=== PATIENT | male | born 1955 ===

== ENCOUNTER 2017-02-23 13:18 | Observation (INO) | payer MEDICAID, OTHER ==
--- NOTE | 2017-02-23 13:35 | C.PDOC ---
History Of Present Illness HISTORY OBTAINED VIA [facility] #[id number] 61 Y/O MALE BROUGHT TO ED BY EMS FROM DR. GONZALEZ'S OFFICE (PMD) WITH C/O CHEST PAIN WITH ASSOC DIFFICULTY BREATHING SINCE THIS MORNING. PT REPORTS HISTORY OF CARDIAC ISSUES (CT IN 2016), TAKING ASPIRIN 81mg. NOTES HE DOES NOT TAKE WATER PILLS. PT STATES CURRENT CP SIMILAR INTENSITY THIS MORNING AT ONSET OF SYMPTOMS, DESCRIBED TIGHTNESS. NOTES +SMOKER "SOMETIMES". PER EMS, PT HAD SYNCOPAL EPISODE DURING TRANSPORT TO ER, LASTING 20-30 SECONDS, WITH HR >140, ELEVATED BP. PT GIVEN NITRO SPRAY x1 AND ASA 324mg EN ROUTE. PT AWAKE, ALERT ON ARRIVAL, SPEAKING IN COMPLETE SENTENCES. . 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 denies: Nausea, Dyspnea, Diaphoresis Nitro Therapy Administered: 1, Per EMS Recent travel outside of the [place]: No Past Medical History Reviewed: Historical Data, Nursing Documentation, Vital Signs Vital Signs: Last Vital Signs Temp 99.0 F 02/23/17 13:26 Pulse 94 H 02/23/17 13:26 Resp 19 02/23/17 13:26 BP 154/100 H 02/23/17 13:26 Pulse Ox 95 02/23/17 14:18 - Medical History PMH: Hypercholesterolemia, Parkinson's Disease Family History: States: Unknown Family Hx - Social History Hx Alcohol Use: No Hx Substance Use: No - Immunization History Hx Influenza Vaccination: No Hx Pneumococcal Vaccination: No Review Of Systems Except As Marked, All Systems Reviewed And Found Negative. Constitutional: Negative for: Fever, Chills Cardiovascular: Positive for: Chest Pain. Negative for: Palpitations Respiratory: Positive for: Shortness of Breath. Negative for: Cough, Wheezing Gastrointestinal: Negative for: Nausea, Vomiting, Abdominal Pain Skin: Negative for: Rash Neurological: Negative for: Dizziness Physical Exam - Physical Exam Appears: Non-toxic, Other (AAO, SPEAKING IN COMPLETE SENTENCES, PARKINSONIAN TREMORS UPPER EXTREMITIES) Skin: Warm, Dry Head: Atraumatic, Normacephalic Eye(s): right: Other (STYE, R UPPER EYELID) Oral Mucosa: Moist Chest: Symmetrical Cardiovascular: Rhythm Regular Respiratory: No Accessory Muscle Use, Rales (BIBASILAR), No Wheezing Gastrointestinal/Abdominal: Soft, No Tenderness Back: Normal Inspection Extremity: Normal ROM Neurological/Psych: Oriented x3, Normal Speech, Normal Cognition ED Course And Treatment - Laboratory Results Result Diagrams: 02/23/17 14:07 02/23/17 14:07 ECG: Interpreted By Me ECG Rhythm: Sinus Rhythm ECG Interpretation: Normal Rate From EC O2 Sat by Pulse Oximetry: 95 (RA) Pulse Ox Interpretation: Normal Progress - Re-Evaluation Re-evaluation Note: 02/23/17 14:58 exam improved d/w dr gonzalez will admit - Data Reviewed Data Reviewed: Lab, Diagnostic imaging, EKG, Old records - Continuity of Care Discussed patient case with:: Patient, On-call PMD-pt unassigned Disposition Counseled Patient/Family Regarding: Diagnosis - Disposition Disposition: HOSPITALIZED Disposition Time: 15:09 Condition: STABLE Forms: [employer] ([place]) - POA Present On Arrival: None - Clinical Impression Clinical Impression: Chest pain - Scribe Statement The provider has reviewed the documentation as recorded by the Scribe SM All medical record entries made by the Scribe were at my direction and personally dictated by me. I have reviewed the chart and agree that the record accurately reflects my personal performance of the history, physical exam, medical decision making, and the department course for this patient. I have also personally directed, reviewed, and agree with the discharge instructions and disposition. Decision To Admit - Pt Status Changed To: Hospital Disposition Of: Observation - . Bed Request Type: Telemetry Admitting Physician: Connor Gonzalez Patient Diagnosis: Chest pain
[2017-02-23 14:14] LABS: BASO # 0.1 K/uL (0.0-0.2); BASO % 0.7 % (0.0-2.0); EOS % 0.1 % (0.0-4.0); HEMATOCRIT 45.5 % (35.0-51.0); LYMPH # 2.8 K/uL (1.0-4.3); LYMPH % 25.7 % (20.0-40.0); MEAN CELL VOLUME 90.8 fL (80.0-94.0); MEAN CORPUSCULAR HGB CONC 34.1 g/dL (33.0-37.0); MEAN PLATELET VOLUME 8.1 fL (7.2-11.7); MONO # 0.7 K/uL (0.0-0.8); MONO % 6.4 % (0.0-10.0); RED CELL DISTRIBUTION WIDTH 14.6 % (11.5-14.5)
[2017-02-23 14:26] LABS: CHLORIDE 103 mmol/L (98-107)
[2017-02-23 14:27] LABS: POTASSIUM 3.9 mmol/L (3.6-5.2); SODIUM 137 mmol/L (132-148)
[2017-02-23 14:29] LABS: ALB/GLOB RATIO 1.1 (1.0-2.1); ALKALINE PHOSPHATASE 72 U/L (38-126); AST/SGOT 26 U/L (17-59); BILIRUBIN,TOTAL 0.4 mg/dL (0.2-1.3); BLOOD UREA NITROGEN 12 mg/dL (9-20); CARBON DIOXIDE 25 mmol/L (22-30); GFR AFRICAN-AMERICAN > 60; TOTAL PROTEIN 8.4 g/dL (6.3-8.3)
[2017-02-23 14:30] LABS: ALT/SGPT 49 U/L (21-72); CALCIUM 9.2 mg/dl (8.6-10.4); GLUCOSE,RANDOM 99 mg/dL (75-110)
--- NOTE | 2017-02-23 14:56 | RAD ---
PROCEDURE: CHEST RADIOGRAPH, 1 VIEW HISTORY: chest pain COMPARISON: Portable chest 03/30/2016. FINDINGS: LUNGS: Clear. PLEURA: No pneumothorax or pleural fluid seen. CARDIOVASCULAR: Normal. OSSEOUS STRUCTURES: No significant abnormalities. VISUALIZED UPPER ABDOMEN: Normal. OTHER FINDINGS: None. IMPRESSION: No definite acute cardiopulmonary disease is appreciated in the interval.
--- NOTE | 2017-02-23 22:44 | CP.PCM.HP ---
History of Present Illness - History of Present Illness History of Present Illness: 61 Y/O MALE BROUGHT TO ED BY EMS FROM my OFFICE (PMD) WITH C/O CHEST PAIN WITH ASSOC DIFFICULTY BREATHING SINCE THIS MORNING. PT REPORTS HISTORY OF CARDIAC ISSUES ([place] IN 2016), TAKING ASPIRIN 81mg. NOTES HE DOES NOT TAKE WATER PILLS. PT STATES CURRENT CP SIMILAR INTENSITY THIS MORNING AT ONSET OF SYMPTOMS, DESCRIBED TIGHTNESS. NOTES +SMOKER "SOMETIMES". PER EMS, PT HAD SYNCOPAL EPISODE DURING TRANSPORT TO ER, LASTING 20-30 SECONDS, WITH HR >140, ELEVATED BP. PT GIVEN NITRO SPRAY x1 AND ASA 324mg EN ROUTE. PT AWAKE, ALERT ON ARRIVAL, SPEAKING IN COMPLETE SENTENCES. . Present on Admission - Present on Admission Any Indicators Present on Admission: No Past Patient History - Infectious Disease Hx of Infectious Diseases: None - Past Medical History & Family History Past Medical History?: Yes - Past Social History Smoking Status: Light Smoker < 10 Cigarettes Daily - CARDIAC Hx Hypercholesterolemia: Yes - NEUROLOGICAL Hx Parkinson's Disease: Yes - MUSCULOSKELETAL/RHEUMATOLOGICAL Hx Falls: No - PSYCHIATRIC Hx Substance Use: No - SURGICAL HISTORY Hx Surgeries: No - ANESTHESIA Hx Anesthesia: No Meds Home Medications: Home Medication List Medication Instructions Recorded Confirmed Type Rosuvastatin Calcium [Crestor] 5 mg PO HS #30 tab 02/25/17 Rx Allergies/Adverse Reactions: Allergies Allergy/AdvReac Type Severity Reaction Status Date / Time No Known Allergies Allergy Verified 02/23/17 13:57 Physical Exam - Constitutional Appears: In Acute Distress, Cachectic, Chronically Ill - Head Exam Head Exam: ATRAUMATIC, NORMAL INSPECTION, NORMOCEPHALIC - Eye Exam Eye Exam: EOMI, Normal appearance, PERRL Pupil Exam: NORMAL ACCOMODATION, PERRL - Respiratory Exam Respiratory Exam: Clear to Auscultation Bilateral, NORMAL BREATHING PATTERN - Cardiovascular Exam Cardiovascular Exam: REGULAR RHYTHM - GI/Abdominal Exam GI & Abdominal Exam: Normal Bowel Sounds, Soft. absent: Tenderness - Rectal Exam Rectal Exam: Deferred Results - Vital Signs Recent Vital Signs: Last Vital Signs Temp 97.5 F L 02/23/17 16:35 Pulse 60 02/23/17 16:40 Resp 20 02/23/17 16:35 BP 133/79 02/23/17 16:35 Pulse Ox 99 02/23/17 16:35 - Labs Result Diagrams: 02/23/17 14:07 02/23/17 14:07 Labs: Laboratory Results - last 24 hr 02/23/17 02/23/17 02/23/17 14:02 14:07 14:07 WBC 11.0 H RBC 5.01 Hgb 15.5 Hct 45.5 MCV 90.8 MCH 31.0 MCHC 34.1 RDW 14.6 H Plt Count 276 MPV 8.1 Neut % (Auto) 67.1 Lymph % (Auto) 25.7 Luce % (Auto) 6.4 Eos % (Auto) 0.1 Baso % (Auto) 0.7 Neut # 7.4 H Lymph # 2.8 Luce # 0.7 Eos # 0.0 Baso # 0.1 PT 10.6 INR 1.0 APTT 32 Sodium Potassium Chloride Carbon Dioxide Anion Gap BUN Creatinine Est GFR ( Amer) Est GFR (Non-Af Amer) POC Glucose (mg/dL) 96 Random Glucose Calcium Total Bilirubin AST ALT Alkaline Phosphatase Total Creatine Kinase CK-MB (Mass) Troponin I Troponin I, Quant NT-Pro-B Natriuret Pep Total Protein Albumin Globulin Albumin/Globulin Ratio 02/23/17 02/23/17 14:07 21:47 WBC RBC Hgb Hct MCV MCH MCHC RDW Plt Count MPV Neut % (Auto) Lymph % (Auto) Luce % (Auto) Eos % (Auto) Baso % (Auto) Neut # Lymph # Luce # Eos # Baso # PT INR APTT Sodium 137 Potassium 3.9 Chloride 103 Carbon Dioxide 25 Anion Gap 13 BUN 12 Creatinine 0.7 L Est GFR ( Amer) > 60 Est GFR (Non-Af Amer) > 60 POC Glucose (mg/dL) Random Glucose 99 Calcium 9.2 Total Bilirubin 0.4 AST 26 ALT 49 Alkaline Phosphatase 72 Total Creatine Kinase 285 H CK-MB (Mass) 0.66 Troponin I < 0.0120 Troponin I, Quant < 0.0120 NT-Pro-B Natriuret Pep 25.3 Total Protein 8.4 H Albumin 4.5 Globulin 4.0 H Albumin/Globulin Ratio 1.1 Assessment & Plan (1) Chest pain Status: Acute (2) Contusion Status: Acute (3) Near syncope Status: Acute (4) HTN (hypertension) Status: Acute
[2017-02-24 08:58] LABS: CHOLESTEROL 180 mg/dL (0-199)
[2017-02-24] MEDS ORDERED: Influenza Vaccine 60 mcg/0.5 mL SYR (4YR UP) IM ONE (10:00)
--- NOTE | 2017-02-24 13:41 | CARD ---
APPROVED REPORT EKG Measurement Heart [id number] NE [id number] <Conclusion> Normal sinus rhythm Normal ECG
--- NOTE | 2017-02-24 15:17 | CP.PCM.PN ---
Subjective - Date & Time of Evaluation Date of Evaluation: 02/24/17 Time of Evaluation: 20:00 - Subjective Subjective: CC: chest pain elderly veitamnese male with PMH of HTN, Hyperlipidemia came in sub sternal chest pain more towards right side. poor historian, he is smoker and drinks occasionally. admit pt and detail orders writtent o rule out MT Objective - Vital Signs/Intake and Output Vital Signs (last 24 hours): Temp Pulse Resp BP Pulse Ox 98 F 52 L 20 131/81 97 02/24/17 12:46 02/24/17 12:46 02/24/17 12:46 02/24/17 12:46 02/24/17 12:46 Intake and Output: 02/24/17 02/24/17 06:59 18:59 Intake Total 720 Balance 720 - Medications Medications: Current Medications Acetaminophen (Tylenol 325mg Tab) 650 mg PO Q6 PRN PRN Reason: Headache Aspirin (Ecotrin) 81 mg PO DAILY [facility] Last Admin: 02/24/17 10:54 Dose: 81 mg Enoxaparin Sodium (Lovenox) 80 mg SC Q12 JOSE Rosuvastatin Calcium (Crestor) 5 mg PO HS [facility] Last Admin: 02/23/17 21:34 Dose: 5 mg - Labs Labs: 02/23/17 14:07 02/23/17 14:07 PT 10.6 SECONDS (9.7-12.2) 02/23/17 14:07 INR 1.0 02/23/17 14:07 APTT 32 SECONDS (21-34) 02/23/17 14:07 - Constitutional Appears: No Acute Distress - Head Exam Head Exam: ATRAUMATIC, NORMAL INSPECTION, NORMOCEPHALIC - Eye Exam Eye Exam: EOMI, Normal appearance, PERRL Pupil Exam: NORMAL ACCOMODATION, PERRL - Respiratory Exam Respiratory Exam: Decreased Breath Sounds, Rales, Rhonchi - Cardiovascular Exam Cardiovascular Exam: REGULAR RHYTHM, +S1, +S2. absent: Murmur - GI/Abdominal Exam GI & Abdominal Exam: Soft, Normal Bowel Sounds. absent: Tenderness - Neurological Exam Neurological Exam: Alert, Awake, CN II-XII Intact, Normal Gait, Oriented x3 Assessment and Plan (1) Chest pain Assessment & Plan: rule out MT Status: Acute (2) HTN (hypertension) Status: Acute (3) Near syncope Status: Acute
[2017-02-24] MEDS ORDERED: Iodixanol 320 MG/ML 100 ML BOTTLE IV ONE (19:05)
--- NOTE | 2017-02-24 20:32 | CT ---
EXAM: CT Angiography Chest With Intravenous Contrast EXAM DATE/TIME: 02/24/2017 2:44 PM CLINICAL HISTORY: 61 years old, male; Pain; Chest pressure; Additional info: R/O pe TECHNIQUE: Axial computed tomographic angiography images of the chest with intravenous contrast using pulmonary embolism protocol. All CT scans at this facility use one or more dose reduction techniques, viz.: automated exposure control; ma/kV adjustment per patient size (including targeted exams where dose is matched to indication; i.e. head); or iterative reconstruction technique. MIP reconstructed images were created and reviewed. Coronal and sagittal reformatted images were created and reviewed. CONTRAST: 100 mL of visipaque 320 administered intravenously. COMPARISON: There are no prior studies for comparison. FINDINGS: Heart, aorta and Pulmonary arteries: The heart is mildly enlarged. There are atherosclerotic calcifications.There is no aneurysm or dissection. There is perfusion of the arch vessels. There are no pulmonary emboli. Lungs and pleural spaces: Trachea and main bronchi are patent. The there early paraseptal emphysematous changes in the lung apices. There is dependent atelectasis bilaterally. There is no lobar or segmental consolidation. There are no effusions. Mediastinum: The esophagus is unremarkable. There are no pathologically enlarged mediastinal or hilar nodes. There is shotty right hilar adenopathy. Thyroid: There is a small calcification in the left lobe of the thyroid. Bones/joints: There are degenerative changes in the osseus structures. Soft tissues: unremarkable Upper abdomen: There are no acute abnormalities in the visualized portion of the abdomen. IMPRESSION: No aneurysm, dissection or pulmonary embolus; no focal pneumonia; early emphysematous changes in the lung apices Additional findings as described above.
[2017-02-24] MEDS: Enoxaparin 80 mg Syringe SC SCH (21:51)
[2017-02-24] MEDS ORDERED: Enoxaparin 60 mg Syringe SC SCH (22:00)
[2017-02-25 01:03] VITALS: RESP 20
[2017-02-25 08:49] VITALS: BP 119/75; TEMP 98.2; O2SAT 96
[2017-02-25] MEDS: Enoxaparin 80 mg Syringe SC SCH (09:38)
--- NOTE | 2017-02-25 10:54 | CON ---
CARDIOLOGY CONSULTATION REASON FOR CONSULTATION: Chest pain. HISTORY OF PRESENT ILLNESS: The patient is a 71-year-old [place] male, who has questionable history of coronary artery disease in 2016; however, the patient is not very informative about what was done to him and at what institution. The patient was referred from office because of chest pain and shortness of breath. The patient cannot describe his chest pain; however, he points to the right pectoral area. The patient denies any fever or chills or productive cough. Apparently, the patient had a syncopal episode as described by the EMS team to the Emergency Room team. The episode lasted 20 to 30 seconds with heart rate more than 140 and was given one nitro spray and aspirin at that time. I did review those rhythm strips and EKGs and review sinus tachycardia in the field. SOCIAL HISTORY: The patient is a smoker, smokes six cigarettes according to him a day. He denies EtOH abuse. MEDICATIONS: At home, the patient is on aspirin and Crestor. Hospital medications are Crestor 5 mg once a day, aspirin 81 mg once a day, Tylenol 650 mg q. 6 hours. REVIEW OF SYSTEMS: No nausea or vomiting. No fever or chills. PHYSICAL EXAMINATION: GENERAL: The patient is a middle-aged male, who does not appear to be in acute distress. VITAL SIGNS: Blood pressure 131/81, heart rate 52, temperature 98, respirations 20. HEENT: Normocephalic. CHEST: Clear. HEART: S1 and S2 are regular. ABDOMEN: Soft. EXTREMITIES: No edema. No calf tenderness. LABORATORY DATA: SMA-7 is within normal limits except for creatinine 0.7. Three sets of troponins are negative. LDL cholesterol is 137. The rest of lipid profile is within normal limits. White count 11.0. Hemoglobin, hematocrit, and platelet count are within normal limits. PT, PTT and INR are within normal limits. Chest x-ray was unremarkable. EKG revealed normal sinus rhythm at the rate of 99. ASSESSMENT: 1. Chest pain. Myocardial infarction was ruled out. 2. Sinus tachycardia in the field, ruled out pulmonary infarction. 3. Mild hyperlipidemia. 4. Syncope episode reported by the ambulance in the field with documented sinus tachycardia and elevated blood pressure at that time. RECOMMENDATIONS: 1. Continue aspirin and Crestor therapy. 2. Start therapy with subcutaneous Lovenox. 3. Obtain stat CT angio of the chest to rule out PE. 4. Obtain an echocardiogram and urine for drug screen. Abel Arellano MD
[2017-02-25 12:33] VITALS: PULSE 89
--- NOTE | 2017-02-25 13:03 | CP.PCM.PN ---
Subjective - Date & Time of Evaluation Date of Evaluation: 02/25/17 Time of Evaluation: 10:25 - Subjective Subjective: Patient seen today, states chest pain resolved, denies any sob, palpitations, dizziness , wants to go home No overnight events recorded on monitor EKG- sinus rhythm toponin x3 - negative Objective - Vital Signs/Intake and Output Vital Signs (last 24 hours): Temp Pulse Resp BP Pulse Ox 98.2 F 89 20 119/75 96 02/25/17 08:45 02/25/17 12:31 02/25/17 08:45 02/25/17 08:45 02/25/17 08:45 - Medications Medications: Current Medications Acetaminophen (Tylenol 325mg Tab) 650 mg PO Q6 PRN PRN Reason: Headache Aspirin (Ecotrin) 81 mg PO DAILY [facility] Last Admin: 02/25/17 09:38 Dose: 81 mg Atenolol (Tenormin) 12.5 mg PO DAILY [facility] Enoxaparin Sodium (Lovenox) 40 mg SC DAILY [facility] Rosuvastatin Calcium (Crestor) 5 mg PO HS [facility] Last Admin: 02/24/17 21:51 Dose: 5 mg - Labs Labs: 02/23/17 14:07 02/23/17 14:07 PT 10.6 SECONDS (9.7-12.2) 02/23/17 14:07 INR 1.0 02/23/17 14:07 APTT 32 SECONDS (21-34) 02/23/17 14:07 - Constitutional Appears: Well, No Acute Distress - Respiratory Exam Respiratory Exam: Clear to Ausculation Bilateral, NORMAL BREATHING PATTERN - Cardiovascular Exam Cardiovascular Exam: REGULAR RHYTHM, +S1, +S2 - Neurological Exam Neurological Exam: Alert, Awake, Oriented x3 Assessment and Plan - Assessment and Plan (Free Text) Assessment: A/P 61 yr old male admitted for chest denton troponin x 3 - negative EKG- sinus rhythm seen by Dr. Arellano today , recommends stress test today , pt reused , as per Dr. Arellano stress test can be done out patient and cleared for discharge from cardiology stand point D/w Dr. Lewis, cleared for discharge home today and f/u with Dr. Ferro office in 1 week Discharge plan discussed with patient who understands and agrees with plan
--- NOTE | 2017-02-25 13:23 | PN ---
DATE: SUBJECTIVE: The patient denies any chest pain or shortness of breath. He insist on going home at this moment. Refusing to wait for any more testing. PHYSICAL EXAMINATION: VITAL SIGNS: Blood pressure 119/65, heart rate 66, temperature 98.2, and respirations 20. HEENT: Normocephalic. CHEST: Clear. HEART: Sounds regular. ABDOMEN: Soft. EXTREMITIES: No edema. LABORATORY DATA: Repeat EKG today reveal normal sinus rhythm. Echocardiographic study from March of last year revealed normal left ventricular systolic function and no pulmonary hypertension. ASSESSMENT: 1. Atypical chest pain, myocardial infarction is ruled out. 2. Hyperlipidemia. CONDITIONS: The patient can be discharged on aspirin and Crestor therapy, also add atenolol at 12.5 mg once a day and outpatient stress test is recommended. Abel Arellano MD
--- NOTE | 2017-02-25 23:13 | CP.PCM.DIS ---
Provider - Provider Date of Admission: 02/23/17 15:10 Attending physician: Connor Ferro MD Time Spent in preparation of Discharge (in minutes): 45 Diagnosis - Discharge Diagnosis (1) Chest pain Status: Acute (2) HTN (hypertension) Status: Acute (3) Near syncope Status: Acute Hospital Course - Lab Results Lab Results: Most Recent Lab Values WBC 11.0 K/uL (4.8-10.8) H 02/23/17 14:07 RBC 5.01 Mil/uL (4.40-5.90) 02/23/17 14:07 Hgb 15.5 g/dL (12.0-18.0) 02/23/17 14:07 Hct 45.5 % (35.0-51.0) 02/23/17 14:07 MCV 90.8 fL (80.0-94.0) 02/23/17 14:07 MCH 31.0 pg (27.0-31.0) 02/23/17 14:07 MCHC 34.1 g/dL (33.0-37.0) 02/23/17 14:07 RDW 14.6 % (11.5-14.5) H 02/23/17 14:07 Plt Count 276 K/uL (130-400) 02/23/17 14:07 MPV 8.1 fL (7.2-11.7) 02/23/17 14:07 Neut % (Auto) 67.1 % (50.0-75.0) 02/23/17 14:07 Lymph % (Auto) 25.7 % (20.0-40.0) 02/23/17 14:07 [place] % (Auto) 6.4 % (0.0-10.0) 02/23/17 14:07 Eos % (Auto) 0.1 % (0.0-4.0) 02/23/17 14:07 Baso % (Auto) 0.7 % (0.0-2.0) 02/23/17 14:07 Neut # 7.4 K/uL (1.8-7.0) H 02/23/17 14:07 Lymph # 2.8 K/uL (1.0-4.3) 02/23/17 14:07 [place] # 0.7 K/uL (0.0-0.8) 02/23/17 14:07 Eos # 0.0 K/uL (0.0-0.7) 02/23/17 14:07 Baso # 0.1 K/uL (0.0-0.2) 02/23/17 14:07 PT 10.6 SECONDS (9.7-12.2) 02/23/17 14:07 INR 1.0 02/23/17 14:07 APTT 32 SECONDS (21-34) 02/23/17 14:07 Sodium 137 mmol/L (132-148) 02/23/17 14:07 Potassium 3.9 mmol/L (3.6-5.2) 02/23/17 14:07 Chloride 103 mmol/L (98-107) 02/23/17 14:07 Carbon Dioxide 25 mmol/L (22-30) 02/23/17 14:07 Anion Gap 13 (10-20) 02/23/17 14:07 BUN 12 mg/dL (9-20) 02/23/17 14:07 Creatinine 0.7 mg/dL (0.8-1.5) L 02/23/17 14:07 Est GFR ( Amer) > 60 02/23/17 14:07 Est GFR (Non-Af Amer) > 60 02/23/17 14:07 POC Glucose (mg/dL) 96 mg/dL (65-110) 02/23/17 14:02 Random Glucose 99 mg/dL (75-110) 02/23/17 14:07 Calcium 9.2 mg/dl (8.6-10.4) 02/23/17 14:07 Total Bilirubin 0.4 mg/dL (0.2-1.3) 02/23/17 14:07 AST 26 U/L (17-59) 02/23/17 14:07 ALT 49 U/L (21-72) 02/23/17 14:07 Alkaline Phosphatase 72 U/L (38-126) 02/23/17 14:07 Total Creatine Kinase 310 U/L (55-170) H 02/24/17 08:40 CK-MB (Mass) 0.67 ng/mL (0.0-3.38) 02/24/17 08:40 Troponin I < 0.0120 ng/mL (0.00-0.120) 02/23/17 14:07 Troponin I, Quant < 0.0120 ng/mL (0.00-0.120) 02/24/17 08:40 NT-Pro-B Natriuret Pep 25.3 pg/mL (0-900) 02/23/17 14:07 Total Protein 8.4 g/dL (6.3-8.3) H 02/23/17 14:07 Albumin 4.5 g/dL (3.5-5.0) 02/23/17 14:07 Globulin 4.0 gm/dL (2.2-3.9) H 02/23/17 14:07 Albumin/Globulin Ratio 1.1 (1.0-2.1) 02/23/17 14:07 Triglycerides 140 mg/dL (0-149) D 02/24/17 08:40 Cholesterol 180 mg/dL (0-199) 02/24/17 08:40 LDL Cholesterol Direct 137 mg/dL (0-129) H 02/24/17 08:40 HDL Cholesterol 40 mg/dL (30-70) 02/24/17 08:40 - Hospital Course Hospital Course: A/P 61 yr old male admitted for chest pain troponin x 3 - negative EKG- sinus rhythm cardiology recommends stress test today , pt reused , as per Dr. Arellano stress test can be done out patient and cleared for discharge from cardiology stand point cleared for discharge home today and f/u with me in office in 1 week Discharge plan discussed with patient who understands and agrees with plan Discharge Exam - Head Exam Head Exam: ATRAUMATIC, NORMAL INSPECTION, NORMOCEPHALIC - Eye Exam Eye Exam: EOMI, Normal appearance - ENT Exam ENT Exam: Mucous Membranes Moist - Respiratory Exam Respiratory Exam: Decreased Breath Sounds - Cardiovascular Exam Cardiovascular Exam: REGULAR RHYTHM, +S1, +S2 - GI/Abdominal Exam GI & Abdominal Exam: Normal Bowel Sounds Discharge Plan - Discharge Medications Prescriptions: Rosuvastatin Calcium [Crestor] 5 mg PO HS #30 tab - Follow Up Plan Condition: STABLE Disposition: HOME/ ROUTINE Instructions: Rosuvastatin (By mouth), Chest Pain (DC), Heart Healthy Diet (DC) Additional Instructions: Please follow up with Dr. Ferro office in 1 week Resume all home medications Referrals: Connor Ferro MD [Staff Provider] -
[2017-02-26] MEDS ORDERED: Enoxaparin 40 mg Syringe SC SCH (10:00)
--- NOTE | 2017-02-26 11:46 | CARD ---
APPROVED REPORT EKG Measurement Heart [id number] <Conclusion> Normal sinus rhythm Normal ECG
== END 2017-02-25 14:05 | disposition home or self-care (01) ==
LOC: C.ER 13:18 → C.6T 15:10 → C.5S 02-24 06:16 → C.6T 02-24 12:13
PROVIDERS: ADMIT Internal Medicine; ATTEND Internal Medicine
DX: R07.89 Other chest pain (principal); E78.5 Hyperlipidemia, unspecified; F17.210 Nicotine dependence, cigarettes, uncomplicated; I10 Essential (primary) hypertension; I25.2 Old myocardial infarction; Z79.82 Long term (current) use of aspirin; G20 Parkinson's disease
CPT/HCPCS: 36415; 71010; 71275; 80053; 80061; 82948; 83880; 84484; 85025; 85610; 85730; 90471; 90674; 93005; 97116; 97162; 99285; G0378; G8978; G8979; J1650; Q9967